=== PATIENT | male | born 1980 | race Caucasian/White ===

== ENCOUNTER 2024-05-28 07:04 | Day surgery (SDC) | payer OTHER ==
[2024-05-28] VITALS (228 sets, daily range): BP systolic 88–152; BP diastolic 43–112
[~2024-05-28] VITALS: Ht 188 cm; Wt 98.0 kg
[~2024-05-28 07:04] MED LIST: ALBUTEROL SULFATE 2.5 MG VIAL IN PRN; ASCORBIC ACID 4,000 MG in SODIUM CHLORIDE 0.9% 1,000 ML IV SCH; CYANOCOBALAMIN 500 MCG/TAB ( B12) PO PRN; FAMOTIDINE 20 MG/TAB PO PRN; LACTATED RINGER'S 1,000 ML IV PRN; PANTOPRAZOLE SODIUM Sesquihydr 40 MG/TAB PO PRN; SCOPOLAMINE 1.5 MG DIS TD PRN; cloNIDine HCL 0.1 MG/TAB PO PRN; diazePAM 5 MG/TAB PO PRN
[2024-05-28] MEDS ORDERED: SCOPOLAMINE 1.5 MG DIS TD PRN (07:30)
[2024-05-28] MEDS ORDERED: cloNIDine HCL 0.1 MG/TAB PO PRN (07:30)
[2024-05-28] MEDS ORDERED: PANTOPRAZOLE SODIUM Sesquihydr 40 MG/TAB PO PRN (07:30)
[2024-05-28] MEDS ORDERED: ALBUTEROL SULFATE 2.5 MG VIAL IN PRN (07:30)
[2024-05-28] MEDS ORDERED: CYANOCOBALAMIN 500 MCG/TAB ( B12) PO PRN (07:30)
[2024-05-28] MEDS ORDERED: diazePAM 5 MG/TAB PO PRN ×2 (07:30→08:30)
[2024-05-28] MEDS ORDERED: LACTATED RINGER'S 1,000 ML IV PRN ×3 (07:30→19:00)
[2024-05-28] MEDS ORDERED: FAMOTIDINE 20 MG/TAB PO PRN (07:30)
--- NOTE | 2024-05-28 07:40 | NUR ---
Patient arrived to the ANR suite, identification and demographics confirmed. Patient to room 9, AAO, ambulatory, vitals obtained, ID/allergy/fall bands placed, changed into hospital gown, TATYANA hose, and non-slip socks. Procedure and timeline explained for treatment and discharge. All questions answered and the patient presents no concerns at this time.
[2024-05-28] MEDS ORDERED: ASCORBIC ACID 4,000 MG in SODIUM CHLORIDE 0.9% 1,000 ML IV SCH (08:00)
--- NOTE | 2024-05-28 08:09 | NUR ---
Dr. Matos telephoned with patient intake information including usage, dose, last dose/time taken and initial vital signs. Patient history and allergies reviewed with MD. Orders received for 10 mg PO Valium and 0.3 mg PO Clonidine now. Will reassess per protocol in 1.5 hours and update MD with assessment and vitals.
[2024-05-28 09:39] LABS: BASO% 1.3 % (0-3); EOS% 4.3 % (0-8); HEMATOCRIT 39.3 % (39.0-50.0); HEMOGLOBIN 13.3 g/dl (14.0-18.0); IMMATURE GRANULOCYTES 0.8 % (0.0-5.0); LYMPH% 33.5 % (15-41); MEAN CELL VOLUME 87.1 fL CALC (80.0-100.0); MEAN CORPUSCULAR HGB 29.5 pG CALC (26.0-32.0); MEAN CORPUSCULAR HGB CONC 33.8 g/dL CAL (32.0-36.0); MONO% 10.5 % (2-13); NEUT# 1.94 thou/uL (1.82-7.42); NEUT% 49.6 % (42-76); RED BLOOD COUNT 4.51 mill/uL (4.70-6.10); RED CELL DISTRI WIDTH 13.2 % (11.5-15.5)
[2024-05-28 10:02] LABS: ALBUMIN 4.3 g/dL (3.2-5.0); BILIRUBIN, TOTAL 0.3 mg/dL (0.2-1.3); CREATININE 0.8 mg/dL (0.7-1.3); POTASSIUM 4.4 mmol/l (3.5-5.1); TOTAL PROTEIN 6.8 g/dL (6.3-8.2)
--- NOTE | 2024-05-28 10:05 | NUR ---
Patient resting comfortably in bed. Easily aroused, maintains focus, and drifts back to sleep. No signs of active withdrawal or distress noted at this time. Continuous SPO2, rhythm, and respiratory monitoring initiated. IVF @ 250 mL/HR, room air, VSS.
[2024-05-28] MEDS ORDERED: KLONOPIN1 MG PO (10:07)
[2024-05-28] MEDS ORDERED: cloNIDine HCL 0.1 MG/TAB VT PRN (10:20)
[2024-05-28] MEDS ORDERED: SUCCINYLCHOLINE CHLORIDE 20 MG/ML 10ML VIAL IV PRN (10:20)
[2024-05-28] MEDS ORDERED: LIDOCAINE HCL 1% (10MG/ML) 100 MG/10 ML MDV IV PRN (10:20)
[2024-05-28] MEDS ORDERED: NALTREXONE HCL 50 MG/TAB VT PRN (10:20)
[2024-05-28] MEDS ORDERED: THIAMINE HCL 100 MG/ML 2ML VIAL IV PRN (10:20)
[2024-05-28] MEDS ORDERED: MIDAZOLAM HCL 2 MG/2 ML VIAL IV PRN (10:20)
[2024-05-28] MEDS ORDERED: ROCURONIUM BROMIDE 10 MG/ML 5ML VIAL IV PRN (10:20)
[2024-05-28] MEDS ORDERED: DEXAMETHASONE SODIUM PHOSPHATE PF 10 MG/ML SDV IV PRN ×2 (10:20→19:00)
[2024-05-28] MEDS ORDERED: DiphenhydrAMINE HCL 50 MG/ML SDV IV PRN (10:20)
[2024-05-28] MEDS ORDERED: ONDANSETRON HCl 4 MG/2 ML SDV IV PRN ×3 (10:20→19:00)
[2024-05-28] MEDS ORDERED: PROPOFOL 100 ML IV PRN (10:20)
[2024-05-28] MEDS ORDERED: cloNIDine HYDROCHLORIDE 100 MCG/ML 10 ML INJ IV PRN (10:20)
[2024-05-28] MEDS ORDERED: diazePAM 5 MG/TAB VT PRN (10:20)
[2024-05-28] MEDS ORDERED: PROPOFOL 10 MG/ML 100ML VIAL IV PRN (10:20)
[2024-05-28] MEDS ORDERED: LIDOCAINE HCL 1% (10MG/ML) 100 MG/10 ML MDV VT PRN ×2 (10:20)
[2024-05-28] MEDS ORDERED: OCTREOTIDE ACETATE 100 MCG/VIAL SDV SC PRN (10:20)
[2024-05-28] MEDS ORDERED: MAGNESIUM SULFATE HEPTAHYDRATE 100 ML IV PRN (10:20)
[2024-05-28] MEDS ORDERED: STERILE WATER FOR IRRIGATION 1,000 ML BTL IR PRN (10:20)
--- NOTE | 2024-05-28 10:40 | NUR ---
DR. RODRIGUEZ AT BEDSIDE TO ASSESS PT AND DISCUSS POC AND PROCEDURE.
[2024-05-28] MEDS ORDERED: POTASSIUM CHLORIDE 10 MEQ/50 ML BAG IV PRN (10:45)
--- NOTE | 2024-05-28 11:01 | NUR ---
Induction Note Patient to [facility]R procedure room. Time out performed at 1052. Patient placed on monitors, Antoine hugger, bilateral wrist restraints applied for ET tube protection. Versed 5mg given IV push at 1055 Tourniquet applied to right arm Lidocaine 100mg given at 1056 IV push followed by Rocoronium 10mg at 1057 IV push and held for 90 seconds. Propofol bolus of 120mg given at 1059 IV push. Succinylcholine 80mg given IV push at 1100. Smooth intubation with 7.5 ETT. Positive CO2. Positive Auscultation for air exchange. ET tube secured with tape 23 @ the lip. Patient placed on ventilator for spontaneous ventilation. Placed on Propofol IV drip at 1101. OG inserted. Positive air on auscultation. Positive gastric content. Stomach washed at this time.
--- NOTE | 2024-05-28 11:10 | NUR ---
OG close note Stomach washed at this time. Naltrexone 50 mg via OG tube. OG will be clamped for 45 minutes.
--- NOTE | 2024-05-28 11:55 | NUR ---
OG open note OG open at this time. Gastric content draining into drainage bag. OG to drain for 45 minutes. Propofol will be titrated down based on patient.
--- NOTE | 2024-05-28 12:40 | NUR ---
OG close note Stomach washed at this time. Naltrexone 50 mg via OG tube. OG will be clamped for 45 minutes.
--- NOTE | 2024-05-28 14:10 | NUR ---
OG close note Stomach washed at this time. Naltrexone 50 mg with Clonidine 0.2 mg via OG tube. OG will be clamped for 45 minutes.
[2024-05-28] MEDS ORDERED: CLONIDINE0.1 MG PO (14:20)
[2024-05-28] MEDS ORDERED: NALTREXONE50 MG PO (14:21)
[2024-05-28] MEDS ORDERED: KLONOPIN2 MG PO (14:21)
--- NOTE | 2024-05-28 15:40 | NUR ---
OG close note Stomach washed at this time. Naltrexone 25 mg with Clonidine 0.3 mg via OG tube. OG will be clamped for 45 minutes.
[2024-05-28] MEDS ORDERED: ACETAMINOPHEN 1,000 MG/100 ML VIAL IV SCH (17:00)
[2024-05-28] MEDS ORDERED: LIDOCAINE HCL 1% (10MG/ML) 100 MG/10 ML MDV IV SCH (17:00)
[2024-05-28] MEDS ORDERED: KETOROLAC TROMETHAMINE 30 MG/ML SDV IV SCH (17:00)
--- NOTE | 2024-05-28 17:25 | NUR ---
OG close note Stomach washed at this time. Valium 10mg with Clonidine 0.2 mg via OG tube. OG will be clamped for 20-30 minutes for closing dose.
--- NOTE | 2024-05-28 17:45 | NUR ---
Extubation note Closing medications given Benadryl 50mg IV push, Decadron 10mg IV push,Magnesium 4 grams IV, Zofran 8mg IV push, Octreotide 100mcg SC. Stomach washed out prior to extubation. Suctioned gastric content. OG removed. Patient extubated. Propofol Discontinued. Wrist restraints removed. Antoine hugger Removed. See ANR Moderate sedate recovery record for further notes and assessment.
[2024-05-28] MEDS ORDERED: ACETAMINOPHEN 500 MG TAB PO PRN (19:00)
[2024-05-28] MEDS ORDERED: KETOROLAC TROMETHAMINE 30 MG/ML SDV IV PRN (19:00)
[2024-05-28] MEDS ORDERED: HALOPERIDOL LACTATE 5 MG/ML SDV IV PRN (19:00)
[2024-05-28] MEDS ORDERED: PROMETHAZINE HCL 12.5 MG in SODIUM CHLORIDE 0.9% 50 ML IV PRN (19:00)
[2024-05-28] MEDS ORDERED: PROMETHAZINE HCL 25 MG in SODIUM CHLORIDE 0.9% 50 ML IV PRN (19:00)
[2024-05-28] MEDS ORDERED: LORazepam 2 MG/ML IV PRN ×2 (19:00)
[2024-05-28] MEDS ORDERED: ACETAMINOPHEN 1,000 MG/100 ML VIAL IV PRN (19:00)
--- NOTE | 2024-05-28 19:14 | NUR ---
Patient to bed 1 in no acute distress. Transfer of care to on coming nurse, bedside report provided. IVF to continue at 100ml/hr. VSS and Precedex gtt @ 0.8mcg/kg/hr. Patient restless in bed, but redirectable, no adventitious breath sounds appreciated. Bed alarm set. See chart/EMAR for procedural details and assessments. Handoff of care at the time of this note.
--- NOTE | 2024-05-28 20:09 | NUR ---
PT ARRIVED TO ICU BED 1 VIA STRETCHER. BEDSIDE REPORT GIVEN BY DEPARTING RN. PRECEDEX GTT IS @ 0.8 MCG/KG/MIN. NO TITRATING GTT UNLESS PROVIDER IS NOTIFIED PER DR RODRIGUEZ ORDERS. PT IS DROWSY, GARBLED SPEECH, RESTLESS, FLAT AFFECT, PULLING OFF LINES, LEADS, ETC. COMFORT MEASURES PROVIDED: BEAR HUGGER, WARM BLANKET, FLUIDS. PT PULLED 20G IN RAC OUT. SITTER IS @ BEDSIDE.
[2024-05-28] MEDS ORDERED: PATIENT' OWN MED CONTROLLED 1 EA DOSE IV PRN (21:00)
--- NOTE | 2024-05-28 22:00 | NUR ---
PT DROWSY, RESTLESS. PT REMOVED 20 G IN RAC, NEW IV PLACED IN LFA
[2024-05-28] MEDS ORDERED: cloNIDine HCL 0.1 MG/TAB PO SCH (23:00)
[2024-05-28] MEDS ORDERED: clonazePAM 1 MG/TAB PO PRN (23:00)
--- NOTE | 2024-05-29 | NUR ---
PT RESTLESS, REMOVED NEW IV START IN LFA. NEW IV STARTED IN RFA, 22G. MEDS GIVEN PER PROVIDER ORDERS. SITTER @ BEDSIDE
--- NOTE | 2024-05-29 02:00 | NUR ---
PT INCREASINGLY RESTLESS/AGITATED. ATIVAN GIVEN PER ORDERS. PT COMPLAINS OF BACK PAIN. PRECEDEX REMAINS @ 0.8 MCG/KG/MIN PER PROVIDER ORDERS. SITTER @ BEDSIDE
[2024-05-29] MEDS ORDERED: cloNIDine HCL 0.1 MG/TAB PO PRN (04:00)
[2024-05-29] MEDS ORDERED: clonazePAM 1 MG/TAB PO PRN ×2 (04:00→08:00)
[2024-05-29] MEDS ORDERED: NALTREXONE HCL 50 MG/TAB PO SCH (04:00)
--- NOTE | 2024-05-29 04:15 | NUR ---
PT REMOVED RFA 22G. NEW IV STARTED LW, 22G. AFTER EPISODE OF RESTLESSNESS, PT IS RESTING COMFORTABLY AT THIS MOMENT. BP IS 152/83. SITTER @ BEDSIDE
[2024-05-29 04:31] VITALS: BP 152/83
--- NOTE | 2024-05-29 07:15 | NUR ---
REPORT RECIEVED FROM LITA LIVINGSTON. PT IS RESTING IN BED WITH LR @ 100 ML/HR AND PRECEDEX GTT AT 0.8. PT IS ABLE TO FOLLOW SIMPLE COMMANDS. 22G IV IN L HAND, FLUSHES EASILY. ORDERS RECIEVED FROM DR RODRIGUEZ TO DC PRECEDEX GTT AND TRANSFER PT TO MED SURG TO ANR UNIT. PT TRANSFERED TO ROOM 288 WITH HELP FROM [facility] [employer]. VITAL SIGNS STABLE, ALL SAFETY MEASURES IN PLACE AND FUNCTIONING PROPERLY. REPORT GIVEN TO GOPI BARBOSA WHO WILL NOW ASSUME CARE OF THIS PT.
[2024-05-29] MEDS ORDERED: PANTOPRAZOLE SODIUM Sesquihydr 40 MG/TAB PO SCH (08:00)
[2024-05-29] MEDS ORDERED: ACETAMINOPHEN 325 MG/TAB PO SCH (08:00)
[2024-05-29] MEDS ORDERED: cloNIDine HCL 0.1 MG/TAB PO SCH (08:00)
[2024-05-29 08:19] VITALS: BP 149/77
--- NOTE | 2024-05-29 08:30 | NUR ---
patient resting in bed; room air; breathing unlabored; vitals stable; iv site clean and intact running with LR @100; patient is sleeping in bed; breakfast on bedside table; liya white and jones came to check on patient; labs was not able to be drawn; call nia solomon; bed in lowest postion;safety measures in place; music writer in doorway
[2024-05-29] MEDS ORDERED: ACETAMINOPHEN 500 MG TAB PO PRN (09:00)
[2024-05-29] MEDS ORDERED: MAGNESIUM OXIDE 400 MG/TAB PO PRN (09:00)
[2024-05-29] MEDS ORDERED: Cholecalciferol 2,000 UNIT/TAB PO PRN (09:00)
--- NOTE | 2024-05-29 09:51 | NUR ---
Patient a/o x3; toelrated his medication with no issues
--- NOTE | 2024-05-29 11:52 | NUR ---
patient currently in the shower at this time; iv isite clean and intcat saline locked at thistime; no s.s of sitress at this tiem; n issues; patient ambulated down hallway 6 times with stand by asssit
--- NOTE | 2024-05-29 14:05 | NUR ---
patient was in bed and went to sit in recliner next to window, stephanie observe patient macho kat out of a clear bag with white residue , when casualty underwriter walked in room to ask patient what is that in the bag crumbled up the and begin to fumble in his personal bag that was on the floor and went into bathroom and shut the door, a little later casualty underwriter asked patient what was in the bag, patient kept saying there was no bag, informed patient that i saw him with the bag, stephanie called Nohelia to talk to patient
--- NOTE | 2024-05-29 14:57 | NUR ---
Remi wasted the substance that was found in the bag which included hree white bars that apperated to be Xanex per Remi and a pink peach pill; Heather and provider notified
--- NOTE | 2024-05-29 16:23 | NUR ---
IV site discontinued, cath intact. No edema , no redness, voices no discomfort. Discharge instructions given. Patient verbalizes understanding of same. Discharged in stable condition via Ambulatory to Home with family. All belongings sent with pt.
== END 2024-05-29 16:26 | disposition home or self-care (01) | DRG 897 ==
LOC: ANR 07:04 → MS2 07:05 → ICU 19:00 → MS2 05-29 06:42 → ANR 05-29 16:26
PROVIDERS: ATTEND Anesthesiology
DX: F11.20 Opioid dependence, uncomplicated (principal)
CPT/HCPCS: J0131; J1100; J1200; J2060; J2354; J2405; J2704; J3475; J3490